=== PATIENT | male | born 1975 | race Two or more races ===

== ENCOUNTER 2020-11-19 10:01 | Day surgery (SDC) | payer BC ==
[~2020-11-19] VITALS: Ht 177.8 cm; Wt 122.5 kg
[~2020-11-19 10:01] MED LIST: AMLO-489 PO; GLIP10TA9 PO; METF-370 PO; METO25TA93 PO
[2020-11-19] MEDS ORDERED: LIDOCAINE 2%HCL (LOCAL ANESTH.) INJ 20ML MDV ONE (12:07)
[2020-11-19] MEDS ORDERED: SODIUM CHL 0.9% 0 ML ONE (12:28)
[2020-11-19] MEDS ORDERED: MIDAZOLAM HCL 1MG/1ML-2 ML VIAL ONE (12:28)
[2020-11-19] MEDS ORDERED: VERAPAMIL 2.5MG/ML INJ 2ML VIAL IV ONE (12:28)
[2020-11-19] MEDS ORDERED: ANGIOMAX 250 MG VIAL IV ONE (12:28)
[2020-11-19] MEDS ORDERED: fentaNYL CITRATE 100 MCG/2 ML VL ONE (12:28)
[2020-11-19] MEDS ORDERED: HEPARIN SODIUM (PORCINE) 5000 UNITS/ML 1ML VIAL ONE (12:43)
== END 2020-11-19 15:45 | disposition home or self-care (01) ==
LOC: CATH 10:01
PROVIDERS: ATTEND Internal Medicine
DX: R07.89 Other chest pain (principal); I10 Essential (primary) hypertension; I20.8 Other forms of angina pectoris; Z20.822 Contact with and (suspected) exposure to COVID-19; Z98.890 Other specified postprocedural states; Z79.899 Other long term (current) drug therapy; Z87.891 Personal history of nicotine dependence
CPT/HCPCS: 93458; C1887; C1894; J1644; J2250; J3010; U0003; 99152